=== PATIENT | female | born 1985 | race Caucasian/White ===

== ENCOUNTER 2016-06-12 12:59 | Emergency (ER) | payer MEDICARE ==
[2016-06-12 16:00] LABS: BASOPHILS 0.4 % (0.0-2.0); EOSINOPHILS 3.7 % (0-7); HEMATOCRIT 42.2 % (36.0-48.0); HEMOGLOBIN 13.3 g/dL (12-16); IMMATURE GRANULOCYTES 0.3 % (0-5); LYMPHOCYTES 16.8 % (15-50); MCH 27.9 pg (26.0-34.0); MCHC 31.5 g/dL (31.0-37.0); MCV 88.7 fL (80.0-100.0); MEAN PLATELET VOLUME 10.3 fL (7.4-10.4); MONOCYTES 7.5 % (2-11); NEUTROPHILS 71.3 % (40-80); PLATELET COUNT 401 10x3/uL (130-400); RBC 4.76 10x6/uL (4.00-5.40); RDW 14.8 % (11.5-14.5); WBC 13.2 10x3/uL (4.8-10.8)
[2016-06-12 16:11] LABS: APPEARANCE CLOUDY (CLEAR); BILIRUBIN NEGATIVE (NEGATIVE); COLOR YELLOW (YELLOW); GLUCOSE NEGATIVE (NEGATIVE); KETONE NEGATIVE (NEGATIVE); LEUKOCYTE ESTERASE TRACE (NEGATIVE); NITRITE NEGATIVE (NEGATIVE); PROTEIN 2+ mg/dL (NEGATIVE); SPECIFIC GRAVITY 1.005 (1.005-1.020); UROBILINOGEN NORMAL (NORMAL)
[2016-06-12 16:12] LABS: BACTERIA MANY /hpf (NONE SEEN); EPITHELIAL CELLS 0-5 /hpf (0-5); MUCUS <1+ /lpf (NONE SEEN); RED CELLS - URINE 0-5 /hpf (0-5)
[2016-06-12 16:15] LABS: CALC OSMOLALITY 277 mosm/kg (275-300); CALCIUM 9.1 mg/dL (8.5-10.1); CHLORIDE - SERUM 108 mmol/L (98-107); CREATININE - SERUM 0.8 mg/dL (0.6-1.3); GLUCOSE 90 mg/dL (74-106); POTASSIUM - SERUM 3.4 mmol/L (3.5-5.1); SODIUM 137 mmol/L (136-145); UREA NITROGEN 23 mg/dL (7-18); eGFR NON AFRICAN AMERICAN 90 mL/min (90-120)
[2016-06-12 16:18] LABS: UDS - AMPHET NEGATIVE QUAL (NEGATIVE); UDS - BARB NEGATIVE QUAL (NEGATIVE); UDS - BENZO POSITIVE QUAL (NEGATIVE); UDS - COCAINE NEGATIVE QUAL (NEGATIVE); UDS - METH NEGATIVE QUAL (NEGATIVE); UDS - OPIATE NEGATIVE QUAL (NEGATIVE); UDS - PCP NEGATIVE QUAL (NEGATIVE); UDS - THC NEGATIVE QUAL (NEGATIVE)
== END 2016-06-15 16:21 | disposition home or self-care (01) ==
LOC: D.ER 12:59
PROVIDERS: Nurse Practitioner Acute Care
DX: F33.9 Major depressive disorder, recurrent, unspecified (principal); R45.851 Suicidal ideations; Z93.3 Colostomy status; F43.10 Post-traumatic stress disorder, unspecified; G82.20 Paraplegia, unspecified; F17.200 Nicotine dependence, unspecified, uncomplicated

== ENCOUNTER 2018-07-25 10:16 | Inpatient (IN) | payer MEDICARE ==
[~2018-07-25] VITALS: Ht 167.6 cm; Wt 60.8 kg
[2018-07-25] MEDS ORDERED: VALIUM10 MG PO (10:20)
[2018-07-25] MEDS ORDERED: OXYCONTIN15 MG PO (10:21)
[2018-07-25] MEDS ORDERED: SEROQUEL50 MG PO (10:21)
[2018-07-25 11:08] LABS: BASOPHILS 0.1 % (0-2); EOSINOPHILS 0.5 % (0-7); HEMATOCRIT 38.3 % (36.0-48.0); HEMOGLOBIN 12.4 g/dL (12-16); IMMATURE GRANULOCYTES 0.3 % (0-5); LYMPHOCYTES 13.5 % (15-50); MCHC 32.4 g/dL (31.0-37.0); MCV 83.3 fL (80.0-100.0); MEAN PLATELET VOLUME 9.8 fL (7.4-10.4); MONOCYTES 8.1 % (2-11); NEUTROPHILS 77.5 % (40-80); PLATELET COUNT 391 10x3/uL (130-400); RDW 18.3 % (11.5-14.5); WBC 15.5 10x3/uL (4.8-10.8)
--- NOTE | 2018-07-25 11:12 | NUR ---
URINE COLLECTED FROM UROSTOMY SITE AND SENT TO LAB.
[2018-07-25 11:15] LABS: ALBUMIN 3.5 g/dL (3.4-5.0); ALKALINE PHOSPHATASE 82 U/L (46-116); ALT (SGPT) 12 U/L (10-68); AMYLASE - SERUM 30 U/L (25-115); BILIRUBIN - TOTAL 0.46 mg/dL (0.2-1.3); CALC OSMOLALITY 274 mosm/kg (275-300); CALCIUM 8.9 mg/dL (8.5-10.1); CARBON DIOXIDE 17.8 mmol/L (21.0-32.0); CHLORIDE - SERUM 100 mmol/L (98-107); CREATININE - SERUM 0.7 mg/dL (0.6-1.3); GLUCOSE 83 mg/dL (74-106); LIPASE 138 U/L (73-393); PROTEIN - SERUM 8.8 g/dL (6.4-8.2); SODIUM 136 mmol/L (136-145); UREA NITROGEN 23 mg/dL (7-18); eGFR NON AFRICAN AMERICAN > 90 mL/min (90-120)
[2018-07-25 11:28] LABS: HCG URINE NEGATIVE (NEGATIVE)
[2018-07-25 11:32] LABS: APPEARANCE TURBID (CLEAR); BILIRUBIN NEGATIVE (NEGATIVE); COLOR YELLOW (YELLOW); GLUCOSE NEGATIVE (NEGATIVE); KETONE NEGATIVE (NEGATIVE); NITRITE NEGATIVE (NEGATIVE); PROTEIN 3+ mg/dL (NEGATIVE); SPECIFIC GRAVITY 1.005 (1.005-1.020); UROBILINOGEN NORMAL (NORMAL)
[2018-07-25 11:35] LABS: BACTERIA MANY /hpf (NONE SEEN); EPITHELIAL CELLS 0-5 /hpf (0-5); RED CELLS - URINE 0-5 /hpf (0-5)
--- NOTE | 2018-07-25 13:21 | NUR ---
CALLED [facility] [place] [facility] PT REQUEST TO LET HER NURSE KNOW THAT SHE WILL BE ADMITTED HERE.
--- NOTE | 2018-07-25 14:16 | MORECARE ---
CASE MANAGEMENT DISCHARGE SUMMARY PATIENT: DEMETRIO DE LEON UNIT: [id number] ADM DATE: 07/25/18 AGE: 32 : 86 SEX: F ROOM/BED: D.E08 AUTHOR: BUD BERRY PHYSICIAN: REFERRING PHYSICIAN: DULCE CHAUDHRY MD DATE OF SERVICE: 07/25/18 Discharge Plan Patient Name: DEMETRIO DEL EON [facility] [facility] 1985 Planned Disposition: Anticipated Discharge Date: Discharge Date: Expected LOS: Initial Reviewer: [email or web address] Initial Review Date: 07/25/2018 Generated: 07/25/18 3:16 pm Patient Name: DEMETRIO DE LEON Page 75600 at 1416 All edits/amendments must be made on the electronic document DICTATION DATE: 07/25/18 1416 CHUTE TENDER: SUBHASH 07/25/18 1416 RPT#: [id number] DC DATE: STATUS: ADM IN [facility] [address] [place] [address] END OF REPORT
--- NOTE | 2018-07-25 14:27 | MORECARE ---
CASE MANAGEMENT DISCHARGE SUMMARY PATIENT: DEMETRIO DE LEON UNIT: [id number] ADM DATE: 07/25/18 AGE: 32 : 86 SEX: F ROOM/BED: D.E08 AUTHOR: BUD BERRY PHYSICIAN: REFERRING PHYSICIAN: DULCE CHAUDHRY MD DATE OF SERVICE: 07/25/18 Discharge Plan Patient Name: DEMETRIO DE LEON [facility] : 1985 Planned Disposition: Anticipated Discharge Date: Discharge Date: Expected LOS: Initial Reviewer: [email or web address] Initial Review Date: 07/25/2018 Generated: 07/25/18 3:27 pm DCPIA - Discharge Planning Initial Assessment Updated by [email or web address]: Shelli Perkins on 07/25/18 2:19 pm * Is the patient Alert and Oriented? Yes * How many steps to enter\exit or inside your home? * PCP Dr. Iglesia Mckeon [place] * Pharmacy [facility], [place] * Preadmission Environment Senior Care Acute Care Facility * Facility Name [place] [facility] [phone] * ADLs Partial Dependent * Partial ADLs (Assistance needed) Bathing Medication Management Toileting * Equipment Hospital Bed Shower Chair Wheelchair * Other Equipment [place] provides * List name and contact numbers for known caregivers / representatives who currently or will assist patient after discharge: Nurses Samantha or Estrella @facility. * Verbal permission to speak to the caregivers and representatives has been obtained from the patient. Yes * Community resources currently utilized None * Please name any agencies selected above. NA * Additional services required to return to the preadmission environment? No * Can the patient safely return to the preadmission environment? Yes * Has this patient been hospitalized within the prior 30 days at any hospital? No Patient Name: DEMETRIO DE LEON Page 15906 at 1427 All edits/amendments must be made on the electronic document DICTATION DATE: 07/25/18 1426 ARMOR SENIOR SERGEANT: SUBHASH 07/25/18 1426 RPT#: [id number] DC DATE: STATUS: ADM IN [facility] [address] [place] [address] END OF REPORT
--- NOTE | 2018-07-25 14:59 | MORECARE ---
CASE MANAGEMENT DISCHARGE SUMMARY PATIENT: DEMETRIO DE LEON UNIT: [id number] ADM DATE: 07/25/18 AGE: 32 : 86 SEX: F ROOM/BED: D.E08 AUTHOR: JAMALDOC PHYSICIAN: REFERRING PHYSICIAN: DULCE CHAUDHRY MD DATE OF SERVICE: 07/25/18 Discharge Plan Patient Name: DEMETRIO DE LEON Facility: [facility]:[place] : 1985 Planned Disposition: Anticipated Discharge Date: Discharge Date: Expected LOS: Initial Reviewer: [email or web address] Initial Review Date: 07/25/2018 Generated: 07/25/18 3:59 pm DCP- Discharge Planning Updated by [email or web address]: Shelli Perkins on 07/25/18 1:[address] CM met with patient regarding dc needs/plans. Patient is a resident [facility] for past 3 years. PCP: Dr. Iglesia Mckeon. Pharmacy: [facility] or [place] preference. Emergency contact: Samantha De La Rosa @[phone]. DME: W/C, shower chair. 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 Partially independent with ADL's. Patient states she plans to return to [place] upon discharge. Denies being hospitalized within past 30 days (last admit Feb 2018). CM will assist as needed with dc needs/plans. Shelli Perkins RN CM DCPIA - Discharge Planning Initial Assessment Updated by [email or web address]: Shelli Perkins on 07/25/18 2:19 pm * Is the patient Alert and Oriented? Yes * How many steps to enter\exit or inside your home? * PCP Dr. Iglesia Mckeon, [place] * Pharmacy [facility], [place] * Preadmission Environment Computer Engineer Acute Care Facility * [facility] [phone] * ADLs Partial Dependent * Partial ADLs (Assistance needed) Bathing Medication Management Toileting * Equipment Hospital Bed Shower Chair Wheelchair * Other Equipment [place] provides * List name and contact numbers for known caregivers / representatives who currently or will assist patient after discharge: Nurses Samantha De La Rosa @facility. * Verbal permission to speak to the caregivers and representatives has been obtained from the patient. Yes * Community resources currently utilized None * Please name any agencies selected above. NA * Additional services required to return to the preadmission environment? No * Can the patient safely return to the preadmission environment? Yes * Has this patient been hospitalized within the prior 30 days at any hospital? No Last DP export: 07/25/18 1:27 p Patient Name: DEMETRIO DE LEON Page 27141 at 1459 All edits/amendments must be made on the electronic document DICTATION DATE: 07/25/181457 METALS ANALYST: SUBHASH 07/25/181457 RPT#: [id number] DC DATE: STATUS: ADM IN [facility] [address] [place] [address] END OF REPORT
[2018-07-25 15:20] VITALS: BP 139/84
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
[2018-07-25 15:55] VITALS: BP 112/49
--- NOTE | 2018-07-25 16:25 | NUR ---
Arrived to [facility] from ER. Pt has numerous chronic wounds, a LLQ colostomy, urostomy, paralysis and contractures of lower extremities. 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 Wound bed is pale pink and there is a musty odor. Moderate galindo drainage. Right ankle has stage 4 pressure injury measuring 4cm x 2cm x 0.7cm x 0.5cm from 12-12 oclock. Bone noted. Pale pink odorous wound bed with galindo drainage. Left ischium has stage 4 pressure injury measuring 4cm x 3cm x 3cm x 5.5cm @ 3 oclock x 1cm 12-12 oclock. Sacrum has stage 4 pressure injury 4cm x 6cm x 3cm x 3.5cm from 6-9 oclock. Recommendations: -Daily dressing changes using silver alginate -Turn/reposition q 2 hours -air overlay mattress -colostomy / urostomy care weekly and as needed Wound care will monitor.
[2018-07-25 17:52] VITALS: BP 112/49; BMI 21.6
--- NOTE | 2018-07-25 19:06 | NUR ---
DEMEROL GIVEN SLOW IVP FOR ABDOMINAL PAIN. CONTINUES VOMITING LIQUIDS. ENCOURAGED TO DECREASE ORAL INTAKE UNTIL NAUSEA SUBSIDES. VOICED UNDERSTANDING.
[2018-07-25 20:00] VITALS: BP 117/62
--- NOTE | 2018-07-25 23:12 | NUR ---
RECIEVED UP IN BED WITH EYES OPEN. BOYFRIEND AT BEDSIDE. CONT TO HAVE N/V. TO SOON FOR ANTEMETIC. PT DRINKING LOTS OF WATER PER HER BOYFRIEND. ASKED HER TO SLOW DOWN AND LET HER GUT REST TO SEE IF THAT HELPS. NO OTHER EPISODES OF N/V REPORTED. IV TO RIGHT FA WITH NS INFUSING AT 100CC/HR. COLOSTOMY INTACT WITH NO FECES IN BAG. AND URSOTOMY INTACT WITH SMALL AMT OF URINE TO BEDISDE DRAINAGE BAG. DRESSING TO BILATERAL ANKLES, COCCYX AND LEFT SIDE OF BUTTOCKS. DENIES ANY NEEDS AT THIS TIME.
[2018-07-25 23:30] VITALS: BP 110/51
--- NOTE | 2018-07-26 07:33 | NUR ---
DEMEROL GIVEN FOR COMPLAINT OF GENERALIZED PAIN MOSTLY IN BILAT LEGS. FRIEND AT BEDSIDE. DENIES ANY FURTHER NEEDS AT THIS TIME.
[2018-07-26 07:46] LABS: BASOPHILS 0.2 % (0-2); EOSINOPHILS 1.7 % (0-7); IMMATURE GRANULOCYTES 0.4 % (0-5); LYMPHOCYTES 23.7 % (15-50); MCH 26.4 pg (26.0-34.0); MCHC 32.1 g/dL (31.0-37.0); MCV 82.1 fL (80.0-100.0); MEAN PLATELET VOLUME 9.4 fL (7.4-10.4); MONOCYTES 11.2 % (2-11); NEUTROPHILS 62.8 % (40-80); RDW 18.4 % (11.5-14.5)
--- NOTE | 2018-07-26 07:50 | NUR ---
ASSESSMENT COMPLETE. IV TO R FA PATENT.UROSTOMY PATENT WITH CLOUDY URINE NOTED IN BAG. COLOSTOMY PATENT WITH SOFT BROWN STOOL NOTED IN BAG. DRESSINGS INTACT TO BILAT OUTER ANKLES, LEFT BUTTOCKS, AND COCCYX. FRIEND AT BEDSIDE.
[2018-07-26 07:59] LABS: ALKALINE PHOSPHATASE 56 U/L (46-116); BILIRUBIN - TOTAL 0.38 mg/dL (0.2-1.3); CALCIUM 7.4 mg/dL (8.5-10.1); CARBON DIOXIDE 16.5 mmol/L (21.0-32.0); CHLORIDE - SERUM 105 mmol/L (98-107); CREATININE - SERUM 0.7 mg/dL (0.6-1.3); GLUCOSE 83 mg/dL (74-106); MAGNESIUM - SERUM 1.1 mg/dL (1.8-2.4); PHOSPHOROUS 1.8 mg/dL (2.5-4.9); PROTEIN - SERUM 7.1 g/dL (6.4-8.2); SODIUM 138 mmol/L (136-145); eGFR NON AFRICAN AMERICAN > 90 mL/min (90-120)
[2018-07-26 08:00] VITALS: BP 119/74
[2018-07-26 08:01] LABS: ALBUMIN 2.5 g/dL (3.4-5.0); ALT (SGPT) 8 U/L (10-68); CALC OSMOLALITY 275 mosm/kg (275-300); UREA NITROGEN 14 mg/dL (7-18)
[2018-07-26 08:02] LABS: POTASSIUM - SERUM 2.6 mmol/L (3.5-5.1)
[2018-07-26 08:11] LABS: HEMATOCRIT 29.9 % (36.0-48.0); HEMOGLOBIN 9.6 g/dL (12-16); PLATELET COUNT 245 10x3/uL (130-400); RBC 3.64 10x6/uL (4.00-5.40); WBC 8.2 10x3/uL (4.8-10.8)
[2018-07-26 08:27] LABS: HCG SERUM NEGATIVE (NEGATIVE)
--- NOTE | 2018-07-26 11:46 | NUR ---
DILAUDID GIVEN SLOW IVP FOR C/O GENERALIZED PAIN.
[2018-07-26 12:16] VITALS: BP 111/63
[2018-07-26 15:33] VITALS: Ht 167.6 cm; Wt 60.8 kg
--- NOTE | 2018-07-26 15:56 | NUR ---
DILAUDID GIVEN FOR C/O GENERALIZED PAIN. FRIEND AT BEDSIDE. DENIES ANY FURTHER NEEDS AT THIS TIME.
[2018-07-26 16:00] VITALS: BP 130/67
[2018-07-26 21:14] VITALS: BP 109/60
--- NOTE | 2018-07-27 | NUR ---
REFUSED MIDNIGHT VITAL SIGNS.
--- NOTE | 2018-07-27 03:22 | NUR ---
I have reviewed this patient and I concur with the Shift Assessment completed by the Licensed Practical Nurse today this shift.
[2018-07-27 04:00] VITALS: BP 99/58
[2018-07-27 07:28] LABS: BASOPHILS 0.3 % (0-2); EOSINOPHILS 4.9 % (0-7); HEMATOCRIT 30.3 % (36.0-48.0); HEMOGLOBIN 9.7 g/dL (12-16); IMMATURE GRANULOCYTES 0.8 % (0-5); LYMPHOCYTES 32.9 % (15-50); MCH 26.4 pg (26.0-34.0); MCV 82.3 fL (80.0-100.0); MEAN PLATELET VOLUME 9.3 fL (7.4-10.4); MONOCYTES 9.8 % (2-11); NEUTROPHILS 51.3 % (40-80); PLATELET COUNT 225 10x3/uL (130-400); RBC 3.68 10x6/uL (4.00-5.40); RDW 18.8 % (11.5-14.5); WBC 6.4 10x3/uL (4.8-10.8)
[2018-07-27 07:52] LABS: ALBUMIN 2.3 g/dL (3.4-5.0); ALKALINE PHOSPHATASE 56 U/L (46-116); ALT (SGPT) 8 U/L (10-68); BILIRUBIN - TOTAL 0.36 mg/dL (0.2-1.3); CALC OSMOLALITY 273 mosm/kg (275-300); CALCIUM 7.7 mg/dL (8.5-10.1); CARBON DIOXIDE 16.3 mmol/L (21.0-32.0); CHLORIDE - SERUM 106 mmol/L (98-107); CREATININE - SERUM 0.6 mg/dL (0.6-1.3); GLUCOSE 94 mg/dL (74-106); MAGNESIUM - SERUM 1.7 mg/dL (1.8-2.4); PROTEIN - SERUM 6.8 g/dL (6.4-8.2); SODIUM 138 mmol/L (136-145); UREA NITROGEN 7 mg/dL (7-18); eGFR NON AFRICAN AMERICAN > 90 mL/min (90-120)
[2018-07-27 07:53] VITALS: BP 104/62
[2018-07-27 08:08] LABS: % SATURATION 22 % (15-55); IRON 33 ug/dl (35-150); TOTAL IRON BIND CAPACITY 148 ug/dl (260-445); UNSAT IRON BIND CAPACITY 115 ug/dl (150-375)
--- NOTE | 2018-07-27 08:25 | NUR ---
PT AOX4 RESP EVEN AND NONLABORED PT DENIES NEEDS AT THIS TIME IV TO LEFT FOREARM PATENT AND INTACT AT THIS TIME SRX2 BED AT LOWEST SETTING CALL LIGHT WITHIN REACH WILL CONTINUE TO MONITOR
[2018-07-27 11:59] VITALS: BP 125/68
--- NOTE | 2018-07-27 19:30 | NUR ---
PT SITTING UP ON SIDE OF BED WITH VISITOR IN ROOM. CALL LIGHT IN REACH. PT DENIES NEEDS AT THIS TIME. BED IN LOW. SIDE RAILS X2. PT IV RUNNING AT THIS TIME WITH ABX AND NS AT 100ML/HR. RESP EVEN AND UNLABORED. WILL CONTINUE TO MONITOR.
[2018-07-27 20:14] VITALS: BP 115/57
--- NOTE | 2018-07-28 02:01 | NUR ---
PT RESTING QUIETLY. CALL LIGHT IN REACH. NO SIGNS OF DISTRESS OR PAIN. RESP EVEN AND UNLABORED. EYES CLOSED. VISITOR IN ROOM IN RECLINER.
--- NOTE | 2018-07-28 02:07 | NUR ---
I have reviewed this patient and I concur with the Shift Assessment completed by the Licensed Practical Nurse today this shift.
[2018-07-28 05:17] VITALS: BP 108/48
[2018-07-28 06:47] LABS: BASOPHILS 0.4 % (0-2); EOSINOPHILS 6.9 % (0-7); HEMATOCRIT 31.2 % (36.0-48.0); HEMOGLOBIN 9.8 g/dL (12-16); IMMATURE GRANULOCYTES 0.7 % (0-5); LYMPHOCYTES 36.3 % (15-50); MCH 26.3 pg (26.0-34.0); MCHC 31.4 g/dL (31.0-37.0); MCV 83.6 fL (80.0-100.0); MEAN PLATELET VOLUME 9.7 fL (7.4-10.4); MONOCYTES 6.7 % (2-11); RBC 3.73 10x6/uL (4.00-5.40); RDW 19.3 % (11.5-14.5); WBC 6.8 10x3/uL (4.8-10.8)
[2018-07-28 06:50] LABS: PLATELET COUNT 303 10x3/uL (130-400)
[2018-07-28 07:12] LABS: ALBUMIN 2.6 g/dL (3.4-5.0); ALKALINE PHOSPHATASE 62 U/L (46-116); ALT (SGPT) 10 U/L (10-68); BILIRUBIN - TOTAL 0.32 mg/dL (0.2-1.3); CALCIUM 8.1 mg/dL (8.5-10.1); CARBON DIOXIDE 19.5 mmol/L (21.0-32.0); CHLORIDE - SERUM 106 mmol/L (98-107); CREATININE - SERUM 0.6 mg/dL (0.6-1.3); GLUCOSE 92 mg/dL (74-106); MAGNESIUM - SERUM 1.9 mg/dL (1.8-2.4); POTASSIUM - SERUM 3.5 mmol/L (3.5-5.1); PROTEIN - SERUM 7.4 g/dL (6.4-8.2); SODIUM 138 mmol/L (136-145); eGFR NON AFRICAN AMERICAN > 90 mL/min (90-120)
[2018-07-28 07:15] LABS: CALC OSMOLALITY 272 mosm/kg (275-300); UREA NITROGEN 4 mg/dL (7-18)
--- NOTE | 2018-07-28 08:15 | NUR ---
PT AOX4 RESP EVEN AND NONLABORED PT DENIES NEEDS AT THIS TIME IV TO RIGHT FOREARM PATENT AND INTACT AT THIS TIME SRX2 BED AT LOWEST SETTING CALL LIGHT WITHIN REACH WILL CONTINUE TO MONITOR
[2018-07-28] MEDS ORDERED: FLAGYL500 MG PO (08:17)
[2018-07-28] MEDS ORDERED: LEVAQUIN750 MG PO (08:17)
--- NOTE | 2018-07-28 19:40 | NUR ---
INTRODUCED SELF TO PATIENT, PATIENT'S SIGNIFICANT OTHER AT BEDSIDE. PATIENT RESP EVEN AND UNLABORED, NO NEEDS AT THIS TIME.
[2018-07-28 20:00] VITALS: BP 152/60
[2018-07-29 07:41] LABS: ALBUMIN 2.7 g/dL (3.4-5.0); ALKALINE PHOSPHATASE 61 U/L (46-116); ALT (SGPT) 11 U/L (10-68); BILIRUBIN - TOTAL 0.34 mg/dL (0.2-1.3); CALC OSMOLALITY 275 mosm/kg (275-300); CALCIUM 8.6 mg/dL (8.5-10.1); CARBON DIOXIDE 19.1 mmol/L (21.0-32.0); CHLORIDE - SERUM 107 mmol/L (98-107); CREATININE - SERUM 0.7 mg/dL (0.6-1.3); GLUCOSE 97 mg/dL (74-106); POTASSIUM - SERUM 3.5 mmol/L (3.5-5.1); PROTEIN - SERUM 7.5 g/dL (6.4-8.2); SODIUM 140 mmol/L (136-145); UREA NITROGEN 5 mg/dL (7-18); eGFR NON AFRICAN AMERICAN > 90 mL/min (90-120)
[2018-07-29 07:42] LABS: BASOPHILS 0.3 % (0-2); EOSINOPHILS 6.1 % (0-7); HEMATOCRIT 33.9 % (36.0-48.0); HEMOGLOBIN 10.8 g/dL (12-16); IMMATURE GRANULOCYTES 0.5 % (0-5); MCH 26.6 pg (26.0-34.0); MCHC 31.9 g/dL (31.0-37.0); MCV 83.5 fL (80.0-100.0); MEAN PLATELET VOLUME 9.8 fL (7.4-10.4); MONOCYTES 4.3 % (2-11); NEUTROPHILS 61.8 % (40-80); PLATELET COUNT 284 10x3/uL (130-400); RBC 4.06 10x6/uL (4.00-5.40); RDW 19.3 % (11.5-14.5); WBC 6.3 10x3/uL (4.8-10.8)
[2018-07-29 07:47] LABS: MAGNESIUM - SERUM 1.3 mg/dL (1.8-2.4)
--- NOTE | 2018-07-29 08:00 | NUR ---
PATIENT IS ALERT/ORIENT. BOYFRIEND AT BEDSIDE. CALL LIGHT WITHIN REACH. VOICES NO NEEDS. PLAN TO DISCHARGE TO [facility]
[2018-07-29 08:42] VITALS: BP 96/50
[2018-07-29 09:08] LABS: FOLATE (FOLIC ACID) - SERUM 4.1 ng/mL (>3.0)
--- NOTE | 2018-07-29 10:37 | NUR ---
[facility] CALLED IN REGARDS TO DISCHARGE TODAY. REPORT GIVEN TO SERGIO MIGUEL. [facility] TO TANK FARM GAUGER PATIENT LATER TODAY.
[2018-07-29 12:00] VITALS: BP 132/74
--- NOTE | 2018-07-29 12:12 | NUR ---
DR MOE INTO SEE PATIENT. NEW ORDERS RECEIVED
--- NOTE | 2018-07-29 13:38 | NUR ---
[facility] HERE TO PICK PATIENT UP. PATIENT HELP OUT BY STAFF
--- NOTE | 2018-07-29 14:18 | MORECARE ---
CASE MANAGEMENT DISCHARGE SUMMARY PATIENT: DEMETRIO DE LEON UNIT: [id number] ADM DATE: 07/25/18 AGE: 32 : 86 SEX: F ROOM/BED: D.1213 AUTHOR: JAMAL,DOC PHYSICIAN: REFERRING PHYSICIAN: DULCE CHAUDHRY MD DATE OF SERVICE: 07/29/18 Discharge Plan Patient Name: DEMETRIO DE LEON Facility: [facility]:[place] : 1985 Planned Disposition: Rotary Cutter Operator Care Fac MCR Anticipated Discharge Date: 07/28/18 Discharge Date: 07/29/2018 Expected LOS: 3 Initial Reviewer: [email or web address] Initial Review Date: 07/25/2018 Generated: 07/29/18 3:18 pm Comments DCP- Discharge Planning Updated by [email or web address]: Melody Bazzi on 07/29/18 1:[address] DISCHARGE PLANNED FOR Sunday07/28/18. CM TELEPHONED [facility] IN AM. PATIENT HAD BEEN OUT ON A PASS AND THEY HAD RECENTLY LEARNED SHE WAS AT [facility]. CLINICAL UPDATE WAS FAXED ALONG WITH DISCHARGE MED LIST AND D/C INSTRUCTIONS. PACKET WAS GIVEN TO THE PRIMARY NURSE, JAH. CONTACT PHONE NUMBERS ON THE COVER SHEET. PRIMARY NURSE TO CALL REPORT. PATIENT STATED SHE HAD TRANSPORTATION. NURSE HAD QUESTIONS REGARDING MEDICATIONS. CM ADVISED HER TO SPEAK WITH RIBBON WINDER WE COULD NOT GIVE ANALGESICS, NARCOTICS , SEDATIVES ETC. CM ALSO SPOKE Alexus ASHRAF, THE NURSING RIBBON WINDER. PATIENT WAS ON SITE THIS AM. CM SPOKE WITH HER. SHE STATED SHE DID NOT LEAVE SHE FELT WEAK, LIGHTHEADED AND NAUSEATED. SHE STATES SHE WAS ON A CLEAR LIQUID DIET. PIA SPOKE WITH HER NURSE, ANGE AND DR MOE ON HIS ROUNDS. DIET ADVANCED. PATIENT RE-EVALUATED AND CAN BE DISCHARGED. FACILITY PROVIDED TRANSPORTATION THIS PM. DCP- Discharge Planning Updated by [email or web address]: Shelli Perkins on 07/25/18 1:[address] CM met with patient regarding dc needs/plans. [facility] past 3 years. PCP: Dr. Iglesia Mckeon. Pharmacy: [facility] [place] preference. Emergency contact: Samantha De La Rosa @[phone]. DME: W/C, shower chair. 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 Partially independent with ADL's. Patient states she plans to return to [place] upon discharge. Denies being hospitalized within past 30 days (last admit Feb 2018). CM will assist as needed with dc needs/plans. Shelli Perkins RN CM DCPIA - Discharge Planning Initial Assessment Updated by [email or web address]: Shelli Perkins on 07/25/18 2:19 pm * Is the patient Alert and Oriented? Yes * How many steps to enter\exit or inside your home? * PCP Dr. Iglesia Mckeon [place] * Pharmacy [facility], [place] * Preadmission Environment Rotary Cutter Operator Acute Care Facility * Facility Name [place] [facility] [phone] * ADLs Partial Dependent * Partial ADLs (Assistance needed) Bathing Medication Management Toileting * Equipment Hospital Bed Shower Chair Wheelchair * Other Equipment [place] provides * List name and contact numbers for known caregivers / representatives who currently or will assist patient after discharge: Nurses Samantha or Estrella @facility. * Verbal permission to speak to the caregivers and representatives has been obtained from the patient. Yes * Community resources currently utilized None * Please name any agencies selected above. NA * Additional services required to return to the preadmission environment? No * Can the patient safely return to the preadmission environment? Yes * Has this patient been hospitalized within the prior 30 days at any hospital? No Last DP export: 07/25/18 1:59 p Patient Name: DEMETRIO DE LEON Page [id number] at 1418 All edits/amendments must be made on the electronic document DICTATION DATE: 07/29/181417 MUSEUM CURATOR: SUBHASH 07/29/181417 RPT#: [id number] DC DATE:07/29/18 STATUS: DIS IN [facility] [address] [place] [address] END OF REPORT
--- NOTE | 2018-07-29 18:16 | MORECARE ---
CASE MANAGEMENT DISCHARGE SUMMARY PATIENT: DEMETRIO DE LEON UNIT: [id number] ADM DATE: 07/25/18 AGE: 32 : 87 SEX: F ROOM/BED: D.1213 AUTHOR: BUD BERRY PHYSICIAN: REFERRING PHYSICIAN: DULCE CHAUDHRY MD DATE OF SERVICE: 07/29/18 Discharge Plan Patient Name: DEMETRIO DE LEON Facility: [facility]:[place] : 1985 Planned Disposition: County Program Technician Care Fac MCR Anticipated Discharge Date: 07/28/18 Discharge Date: 07/29/2018 Expected LOS: 3 Initial Reviewer: [email or web address] Initial Review Date: 07/25/2018 Generated: 07/29/18 7:15 pm Comments DCP- Discharge Planning Updated by [email or web address]: Melody Bazzi on 07/29/18 5:[address] PATIENT WAS ADMITTED TO A HALF-WAY BED. DCP- Discharge Planning Updated by [email or web address]: Melody Bazzi on 07/29/18 1:[address] DISCHARGE PLANNED FOR Sunday07/28/18. CM TELEPHONED [facility] IN AM. PATIENT HAD BEEN OUT ON A PASS AND THEY HAD RECENTLY LEARNED SHE WAS AT [facility]. CLINICAL UPDATE WAS FAXED ALONG WITH DISCHARGE MED LIST AND D/C INSTRUCTIONS. PACKET WAS GIVEN TO THE PRIMARY NURSE, JAH. CONTACT PHONE NUMBERS ON THE COVER SHEET. PRIMARY NURSE TO CALL REPORT. PATIENT STATED SHE HAD TRANSPORTATION. NURSE HAD QUESTIONS REGARDING MEDICATIONS. CM ADVISED HER TO SPEAK WITH CASE MANAGERS WE COULD NOT GIVE ANALGESICS, NARCOTICS , SEDATIVES ETC. CM ALSO SPOKE WNestor ASHRAF, THE NURSING CASE MANAGERS. PATIENT WAS ON SITE THIS AM. CM SPOKE WITH HER. SHE STATED SHE DID NOT LEAVE SHE FELT WEAK, LIGHTHEADED AND NAUSEATED. SHE STATES SHE WAS ON A CLEAR LIQUID DIET. PIA SPOKE WITH HER NURSE, ANGE AND DR MOE ON HIS ROUNDS. DIET ADVANCED. PATIENT RE-EVALUATED AND CAN BE DISCHARGED. FACILITY PROVIDED TRANSPORTATION THIS PM. DCP- Discharge Planning Updated by [email or web address]: Shelli Perkins on 07/25/18 1:[address] CM met with patient regarding dc needs/plans. Patient is a resident of [facility] for past 3 years. PCP: Dr. Iglesia Mckeon. [facility]acy[facility] [place] preference. Emergency contact: Samantha or Estrella @[phone]. DME: W/C, shower chair. 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 Partially independent with ADL's. Patient states she plans to return to [place] upon discharge. Denies being hospitalized within past 30 days (last admit Feb 2018). CM will assist as needed with dc needs/plans. Shelli Perkins RN CM DCPIA - Discharge Planning Initial Assessment Updated by [email or web address]: Shelli Perkins on 07/25/18 2:19 pm * Is the patient Alert and Oriented? Yes * How many steps to enter\exit or inside your home? * PCP Dr. Iglesia Mckeon, [place] * Pharmacy [facility], [place] * Preadmission Environment [facility] * Facility Name [facility] [facility] [phone] * ADLs Partial Dependent * Partial ADLs (Assistance needed) Bathing Medication Management Toileting * Equipment Hospital Bed Shower Chair Wheelchair * Other Equipment [place] provides * List name and contact numbers for known caregivers / representatives who currently or will assist patient after discharge: Nurses Samantha or Estrella @facility. * Verbal permission to speak to the caregivers and representatives has been obtained from the patient. Yes * Community resources currently utilized None * Please name any agencies selected above. NA * Additional services required to return to the preadmission environment? No * Can the patient safely return to the preadmission environment? Yes * Has this patient been hospitalized within the prior 30 days at any hospital? No Last DP export: 07/29/18 1:18 pm Patient Name: DEMETRIO DE LEON Page 68092 at 1816 All edits/amendments must be made on the electronic document DICTATION DATE: 07/29/181814 DUE DILIGENCE COORDINATOR: SUBHASH 07/29/181814 RPT#: [id number] DC DATE:07/29/18 STATUS: DIS IN [facility] [address] [place] [address] END OF REPORT
--- NOTE | 2018-07-30 14:41 | MORECARE ---
CASE MANAGEMENT DISCHARGE SUMMARY PATIENT: DEMETRIO DE LEON UNIT: [id number] ADM DATE: 07/25/18 AGE: 32 : 87 SEX: F ROOM/BED: D.1213 AUTHOR: BUD BERRY PHYSICIAN: REFERRING PHYSICIAN: DULCE CHAUDHRY MD DATE OF SERVICE: 07/30/18 Discharge Plan Patient Name: DEMETRIO DE LEON Facility: [facility]:[place] : 1985 Planned Disposition: Supply Chain Systems Manager Care Fac MCR Anticipated Discharge Date: 07/28/18 Discharge Date: 07/29/2018 Expected LOS: 3 Initial Reviewer: [email or web address] Initial Review Date: 07/25/2018 Generated: 07/30/18 3:41 pm Comments DCP- Discharge Planning Updated by [email or web address]: Melody Bazzi on 07/29/18 5:[address] PATIENT WAS ADMITTED TO A HALFWAY BED. DCP- Discharge Planning Updated by [email or web address]: Melody Bazzi on 07/29/18 1:[address] DISCHARGE PLANNED FOR Sunday07/28/18. CM TELEPHONED [facility] IN AM. PATIENT HAD BEEN OUT ON A PASS AND THEY HAD RECENTLY LEARNED SHE WAS AT [facility]. CLINICAL UPDATE WAS FAXED ALONG WITH DISCHARGE MED LIST AND D/C INSTRUCTIONS. PACKET WAS GIVEN TO THE PRIMARY NURSE, JAH. CONTACT PHONE NUMBERS ON THE COVER SHEET. PRIMARY NURSE TO CALL REPORT. PATIENT STATED SHE HAD TRANSPORTATION. NURSE HAD QUESTIONS REGARDING MEDICATIONS. CM ADVISED HER TO SPEAK WITH CERTIFIED SHORTHAND REPORTER WE COULD NOT GIVE ANALGESICS, NARCOTICS , SEDATIVES ETC. CM ALSO SPOKE WNestor ASHRAF, THE NURSING CERTIFIED SHORTHAND REPORTER. PATIENT WAS ON SITE THIS AM. CM SPOKE WITH HER. SHE STATED SHE DID NOT LEAVE SHE FELT WEAK, LIGHTHEADED AND NAUSEATED. SHE STATES SHE WAS ON A CLEAR LIQUID DIET. PIA SPOKE WITH HER NURSE, ANGE AND DR MOE ON HIS ROUNDS. DIET ADVANCED. PATIENT RE-EVALUATED AND CAN BE DISCHARGED. FACILITY PROVIDED TRANSPORTATION THIS PM. DCP- Discharge Planning Updated by [id number]: Shelli Perkins on 07/25/18 1:[address] CM met with patient regarding dc needs/plans. Patient is a resident of [facility] for past 3 years. PCP: Dr. Iglesia Mckeon. Pharmacy: [facility] [place] preference. Emergency contact: Samantha or Estrella @[phone]. DME: W/C, shower chair. 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 Partially independent with ADL's. Patient states she plans to return to [place] upon discharge. Denies being hospitalized within past 30 days (last admit Feb 2018). CM will assist as needed with dc needs/plans. Shelli Perkins RN CM DCPIA - Discharge Planning Initial Assessment Updated by [email or web address]: Shelli Perkins on 07/25/18 2:19 pm * Is the patient Alert and Oriented? Yes * How many steps to enter\exit or inside your home? * PCP Dr. Iglesia Mckeon, [place] * Pharmacy [facility], [place] * Preadmission Environment [facility] Home Acute Care [facility] * Facility Name [facility] [phone] * ADLs Partial Dependent * Partial ADLs (Assistance needed) Bathing Medication Management Toileting * Equipment Hospital Bed Shower Chair Wheelchair * Other Equipment [place] provides * List name and contact numbers for known caregivers / representatives who currently or will assist patient after discharge: Nurses Samantha or Estrella @facility. * Verbal permission to speak to the caregivers and representatives has been obtained from the patient. Yes * Community resources currently utilized None * Please name any agencies selected above. NA * Additional services required to return to the preadmission environment? No * Can the patient safely return to the preadmission environment? Yes * Has this patient been hospitalized within the prior 30 days at any hospital? No Last DP export: 07/29/18 5:15 pm Patient Name: DEMETRIO DE LEON Page [id number] at 1441 All edits/amendments must be made on the electronic document DICTATION DATE: 07/30/181439 LAND ECONOMIST: SUBHASH 07/30/181439 RPT#: [id number] DC DATE:07/29/18 STATUS: DIS IN [facility] [address] [place] [address] END OF REPORT
== END 2018-07-29 13:40 | DRG 391 ==
LOC: D.ER 10:16 → D.M3 13:41 → D.EDHOLD 13:41 → D.M3 15:22
PROVIDERS: Family Medicine; ADMIT Internal Medicine Nephrology; ATTEND Internal Medicine Nephrology
DX: K29.80 Duodenitis without bleeding (principal); L89.524 Pressure ulcer of left ankle, stage 4; L89.514 Pressure ulcer of right ankle, stage 4; L89.154 Pressure ulcer of sacral region, stage 4; G82.20 Paraplegia, unspecified; N17.9 Acute kidney failure, unspecified; N39.0 Urinary tract infection, site not specified; E87.6 Hypokalemia; Z93.3 Colostomy status; F32.9 Major depressive disorder, single episode, unspecified; F41.9 Anxiety disorder, unspecified

== ENCOUNTER 2018-08-11 23:03 | Emergency (ER) | payer MEDICARE ==
[~2018-08-11 23:03] MED LIST: FLAGYL500 MG PO; LEVAQUIN750 MG PO; OXYCONTIN15 MG PO; SEROQUEL50 MG PO; VALIUM10 MG PO
[2018-08-11 23:05] VITALS: Ht 167.6 cm
[2018-08-11] MEDS ORDERED: COLACE100 MG PO (23:10)
[2018-08-11] MEDS ORDERED: FERROUS SULFAT325 MG PO (23:10)
[2018-08-11] MEDS ORDERED: GABAPENTIN100 MG PO (23:11)
[2018-08-11] MEDS ORDERED: VITAMIN C WIT1000 MG PO (23:12)
[2018-08-11] MEDS ORDERED: VALIUM10 MG PO (23:14)
[2018-08-11] MEDS ORDERED: ZANAFLEX4 MG PO (23:14)
[2018-08-11] MEDS ORDERED: IMODIUM2 MG (23:14)
[2018-08-11] MEDS ORDERED: ZOFRAN4 MG PO (23:15)
[2018-08-11 23:57] LABS: APPEARANCE TURBID (CLEAR); BILIRUBIN NEGATIVE (NEGATIVE); COLOR YELLOW (YELLOW); GLUCOSE NEGATIVE (NEGATIVE); KETONE NEGATIVE (NEGATIVE); NITRITE NEGATIVE (NEGATIVE); PROTEIN 1+ mg/dL (NEGATIVE); UROBILINOGEN NORMAL (NORMAL); WHITE CELLS - URINE 25-50 /hpf (0-5)
[2018-08-11 23:58] LABS: AMORPHOUS SEDIMENT >1+ /lpf (NONE SEEN); BACTERIA FEW /hpf (NONE SEEN); EPITHELIAL CELLS NSEEN /hpf (0-5); HCG URINE NEGATIVE (NEGATIVE); MUCUS >1+ /lpf (NONE SEEN); RED CELLS - URINE 0-5 /hpf (0-5)
[2018-08-12 01:03] LABS: ALBUMIN 3.3 g/dL (3.4-5.0); ALKALINE PHOSPHATASE 58 U/L (46-116); ALT (SGPT) 14 U/L (10-68); BILIRUBIN - TOTAL 0.24 mg/dL (0.2-1.3); CALC OSMOLALITY 282 mosm/kg (275-300); CALCIUM 8.4 mg/dL (8.5-10.1); CARBON DIOXIDE 22.8 mmol/L (21.0-32.0); CHLORIDE - SERUM 105 mmol/L (98-107); CREATININE - SERUM 0.6 mg/dL (0.6-1.3); GLUCOSE 94 mg/dL (74-106); SODIUM 141 mmol/L (136-145); UREA NITROGEN 19 mg/dL (7-18); eGFR NON AFRICAN AMERICAN > 90 mL/min (90-120)
[2018-08-12 01:07] LABS: LIPASE 129 U/L (73-393); MAGNESIUM - SERUM 1.3 mg/dL (1.8-2.4)
[2018-08-12 01:09] LABS: BASOPHILS 0.4 % (0-2); EOSINOPHILS 1.8 % (0-7); HEMATOCRIT 35.4 % (36.0-48.0); HEMOGLOBIN 11.5 g/dL (12-16); IMMATURE GRANULOCYTES 0.3 % (0-5); LYMPHOCYTES 30.1 % (15-50); MCH 27.5 pg (26.0-34.0); MCHC 32.5 g/dL (31.0-37.0); MCV 84.7 fL (80.0-100.0); MONOCYTES 6.6 % (2-11); NEUTROPHILS 60.8 % (40-80); PLATELET COUNT 497 10x3/uL (130-400); RBC 4.18 10x6/uL (4.00-5.40); RDW 18.7 % (11.5-14.5); WBC 9.1 10x3/uL (4.8-10.8)
[2018-08-12 01:10] LABS: TROPONIN-I < 0.017 ng/mL (0.000-0.060)
[2018-08-12] MEDS ORDERED: MACROBID100 MG PO (03:58)
[2018-08-12 05:03] VITALS: BP 92/50
== END 2018-08-12 05:03 ==
LOC: D.ER 23:03
PROVIDERS: Family Medicine
DX: E87.6 Hypokalemia (principal); M86.60 Other chronic osteomyelitis, unspecified site; G82.20 Paraplegia, unspecified; L89.159 Pressure ulcer of sacral region, unspecified stage

== ENCOUNTER 2018-09-09 21:30 | Emergency (ER) | payer MEDICARE ==
[~2018-09-09] VITALS: Ht 167.6 cm; Wt 59.0 kg
[~2018-09-09 21:30] MED LIST changes: +COLACE100 MG PO; +FERROUS SULFAT325 MG PO; +GABAPENTIN100 MG PO; +IMODIUM2 MG; +MACROBID100 MG PO; +VITAMIN C WIT1000 MG PO; +ZANAFLEX4 MG PO; +ZOFRAN4 MG PO
[2018-09-09 21:52] VITALS: Ht 167.6 cm; Wt 59.0 kg
[2018-09-09 22:39] LABS: BASOPHILS 0.5 % (0-2); EOSINOPHILS 1.8 % (0-7); HEMATOCRIT 35.5 % (36.0-48.0); IMMATURE GRANULOCYTES 0.6 % (0-5); LYMPHOCYTES 40.2 % (15-50); MCH 28.5 pg (26.0-34.0); MCHC 33.8 g/dL (31.0-37.0); MCV 84.3 fL (80.0-100.0); MEAN PLATELET VOLUME 9.6 fL (7.4-10.4); MONOCYTES 5.5 % (2-11); NEUTROPHILS 51.4 % (40-80); RBC 4.21 10x6/uL (4.00-5.40); RDW 15.2 % (11.5-14.5); WBC 8.7 10x3/uL (4.8-10.8)
[2018-09-09 22:48] LABS: PLATELET COUNT 642 10x3/uL (130-400)
[2018-09-09 22:54] LABS: ALBUMIN 3.1 g/dL (3.4-5.0); ALKALINE PHOSPHATASE 109 U/L (46-116); ALT (SGPT) 31 U/L (10-68); AMYLASE - SERUM 47 U/L (25-115); BILIRUBIN - TOTAL 0.39 mg/dL (0.2-1.3); CALC OSMOLALITY 271 mosm/kg (275-300); CALCIUM 8.5 mg/dL (8.5-10.1); CHLORIDE - SERUM 101 mmol/L (98-107); CREATININE - SERUM 0.7 mg/dL (0.6-1.3); GLUCOSE 80 mg/dL (74-106); LIPASE 233 U/L (73-393); POTASSIUM - SERUM 3.7 mmol/L (3.5-5.1); PROTEIN - SERUM 9.8 g/dL (6.4-8.2); SODIUM 135 mmol/L (136-145); UREA NITROGEN 20 mg/dL (7-18); eGFR NON AFRICAN AMERICAN > 90 mL/min (90-120)
[2018-09-10 00:27] LABS: APPEARANCE TURBID (CLEAR); BILIRUBIN NEGATIVE (NEGATIVE); COLOR YELLOW (YELLOW); GLUCOSE NEGATIVE (NEGATIVE); KETONE MODERATE mg/dL (NEGATIVE); NITRITE NEGATIVE (NEGATIVE); PROTEIN 1+ mg/dL (NEGATIVE); UROBILINOGEN NORMAL (NORMAL)
[2018-09-10 00:28] LABS: AMORPHOUS SEDIMENT >1+ /lpf (NONE SEEN); BACTERIA MODERATE /hpf (NONE SEEN); EPITHELIAL CELLS RARE /hpf (0-5); MUCUS >1+ /lpf (NONE SEEN); RED CELLS - URINE 0-5 /hpf (0-5)
[2018-09-10 00:29] LABS: HCG URINE NEGATIVE (NEGATIVE)
[2018-09-10 02:27] LABS: UDS - AMPHET NEGATIVE QUAL (NEGATIVE); UDS - BARB NEGATIVE QUAL (NEGATIVE); UDS - BENZO POSITIVE QUAL (NEGATIVE); UDS - COCAINE NEGATIVE QUAL (NEGATIVE); UDS - OPIATE NEGATIVE QUAL (NEGATIVE); UDS - PCP NEGATIVE QUAL (NEGATIVE); UDS - THC POSITIVE QUAL (NEGATIVE)
[2018-09-10] MEDS ORDERED: ZOFRAN ODT4 MG/UDTAB PO (03:15)
[2018-09-10] MEDS ORDERED: OMNICEF300 MG PO (03:15)
[2018-09-10] MEDS ORDERED: FLUTICASONE PRO16 GM NASAL (03:15)
[2018-09-10 05:01] VITALS: BP 108/60
== END 2018-09-10 04:50 | disposition home or self-care (01) ==
LOC: D.ER 21:30
PROVIDERS: Family Medicine
DX: J01.90 Acute sinusitis, unspecified (principal); E86.0 Dehydration; N39.0 Urinary tract infection, site not specified

== ENCOUNTER 2018-12-04 17:29 | Emergency (ER) | payer MEDICARE ==
[~2018-12-04] VITALS: Ht 167.6 cm; Wt 54.5 kg
[~2018-12-04 17:29] MED LIST changes: +FLUTICASONE PRO16 GM NASAL; +OMNICEF300 MG PO; +ZOFRAN ODT4 MG/UDTAB PO
[2018-12-04 17:57] VITALS: BP 98/62; Ht 167.6 cm; Wt 54.5 kg
[2018-12-04 19:39] LABS: BASOPHILS 0.5 % (0-2); EOSINOPHILS 3.3 % (0-7); HEMATOCRIT 34.2 % (36.0-48.0); IMMATURE GRANULOCYTES 0.6 % (0-5); LYMPHOCYTES 35.3 % (15-50); MCHC 32.2 g/dL (31.0-37.0); MEAN PLATELET VOLUME 9.4 fL (7.4-10.4); NEUTROPHILS 55.3 % (40-80); RBC 4.07 10x6/uL (4.00-5.40); WBC 8.4 10x3/uL (4.8-10.8)
[2018-12-04 19:40] LABS: PLATELET COUNT 369 10x3/uL (130-400)
[2018-12-05] MEDS ORDERED: ACETAMINOPHEN500 M1 PO (00:33)
[2018-12-05] MEDS ORDERED: IBUPROFEN800 MG PO (00:33)
[2018-12-05] MEDS ORDERED: KEFLEX500 MG PO (01:33)
[2018-12-05] MEDS ORDERED: MACROBID100 MG PO (01:33)
== END 2018-12-04 20:13 | disposition left against medical advice (07) ==
LOC: D.ER 17:29
PROVIDERS: Emergency Medicine
DX: R51 Headache (principal); R44.0 Auditory hallucinations; N39.0 Urinary tract infection, site not specified

== ENCOUNTER 2018-12-05 | Emergency (ER) | payer MEDICARE ==
[~2018-12-05] VITALS: Ht 167.6 cm; Wt 54.5 kg
[2018-12-05 00:10] VITALS: Ht 167.6 cm; Wt 54.5 kg
[2018-12-05 00:22] LABS: APPEARANCE CLOUDY (CLEAR); BILIRUBIN NEGATIVE (NEGATIVE); COLOR YELLOW (YELLOW); GLUCOSE NEGATIVE (NEGATIVE); KETONE NEGATIVE (NEGATIVE); NITRITE POSITIVE (NEGATIVE); PROTEIN TRACE mg/dL (NEGATIVE); UROBILINOGEN NORMAL (NORMAL)
[2018-12-05 00:23] LABS: BACTERIA MANY /hpf (NONE SEEN); EPITHELIAL CELLS 0-5 /hpf (0-5); HCG URINE NEGATIVE (NEGATIVE); RED CELLS - URINE 0-5 /hpf (0-5); WHITE CELLS - URINE >50 /hpf (0-5)
[2018-12-05 00:30] LABS: UDS - AMPHET NEGATIVE QUAL (NEGATIVE); UDS - BARB NEGATIVE QUAL (NEGATIVE); UDS - BENZO POSITIVE QUAL (NEGATIVE); UDS - COCAINE NEGATIVE QUAL (NEGATIVE); UDS - OPIATE POSITIVE QUAL (NEGATIVE); UDS - PCP NEGATIVE QUAL (NEGATIVE); UDS - THC NEGATIVE QUAL (NEGATIVE)
[2018-12-05] MEDS ORDERED: ACETAMINOPHEN500 M1 PO (00:33)
[2018-12-05] MEDS ORDERED: IBUPROFEN800 MG PO (00:33)
[2018-12-05] MEDS ORDERED: MACROBID100 MG PO (01:33)
[2018-12-05] MEDS ORDERED: KEFLEX500 MG PO (01:33)
[2018-12-05 01:34] LABS: BASOPHILS 0.2 % (0-2); HEMATOCRIT 30.1 % (36.0-48.0); IMMATURE GRANULOCYTES 0.3 % (0-5); MCH 27.4 pg (26.0-34.0); MCHC 33.2 g/dL (31.0-37.0); MCV 82.5 fL (80.0-100.0); MEAN PLATELET VOLUME 9.5 fL (7.4-10.4); NEUTROPHILS 56.5 % (40-80); PLATELET COUNT 374 10x3/uL (130-400); RBC 3.65 10x6/uL (4.00-5.40); RDW 18.1 % (11.5-14.5); WBC 6.6 10x3/uL (4.8-10.8)
[2018-12-05 01:44] LABS: ALBUMIN 2.8 g/dL (3.4-5.0); ANION GAP 18.9 mmol/L (8-16); BILIRUBIN - TOTAL 0.6 mg/dL (0.2-1.3); CALCIUM 8.4 mg/dL (8.5-10.1); CARBON DIOXIDE 18.2 mmol/L (21.0-32.0); POTASSIUM - SERUM 3.1 mmol/L (3.5-5.1); PROTEIN - SERUM 8.4 g/dL (6.4-8.2)
[2018-12-05 01:45] LABS: MAGNESIUM - SERUM 1.7 mg/dL (1.8-2.4)
[2018-12-05 02:10] VITALS: BP 107/70
== END 2018-12-06 02:10 | disposition home or self-care (01) ==
LOC: D.ER
PROVIDERS: Family Medicine
DX: R44.0 Auditory hallucinations (principal); N39.0 Urinary tract infection, site not specified; R51 Headache